=== PATIENT | female | born 1975 | race Caucasian/White ===

== ENCOUNTER 2024-04-29 23:22 | Emergency (ER) | payer BC, OTHER ==
[~2024-04-29] VITALS: Ht 170.2 cm; Wt 90.7 kg
[2024-04-29 23:44] VITALS: BP_SYST 121; PULSE 117; RESP 20; TEMP 99.1; O2SAT 97
[2024-04-30 00:25] LABS: BASOPHILS % (AUTO) 0.2 % (0.0-2.0); EOSINOPHILS % (AUTO) 0.3 % (0.0-4.0); HEMATOCRIT 30.8 % (36-48); HEMOGLOBIN 10.2 g/dL (12.0-16.0); LYMPHOCYTES # (AUTO) 0.4 K/uL (1.0-5.5); LYMPHOCYTES % (AUTO) 3.9 % (20.5-51.5); MEAN CORPUSCULAR HEMOGLOBIN 25 pg (27-31); MEAN CORPUSCULAR HGB CONC 33 % (32-36); MEAN CORPUSCULAR VOLUME 74 fL (79.0-98.0); MONOCYTES # (AUTO) 0.4 K/uL (0.0-1.0); MONOCYTES % (AUTO) 4.1 % (1.7-9.3); NEUTROPHILS % (AUTO) 91.5 % (40.0-70.0); PLATELET COUNT (AUTO) 310 K/uL (130-430); RED BLOOD CELL COUNT(AUTO) 4.14 MIL/uL (4.2-6.2); RED CELL DISTRIBUTION WIDTH 18.3 % (9.0-15.0); WHITE BLOOD COUNT (AUTO) 9.8 K/uL (4.8-10.8)
[2024-04-30 00:29] LABS: BILIRUBIN,URINE NEGATIVE (NEGATIVE); BLOOD, URINE 3+ (NEGATIVE); COLOR,URINE YELLOW (YELLOW); GLUCOSE,URINE NEGATIVE (NEGATIVE); KETONES,URINE 1+ (NEGATIVE); LEUKOCYTE ESTERASE ,URINE 1+ (NEGATIVE); NITRITE, URINE NEGATIVE (NEGATIVE); PROTEIN URINE 2+ (NEGATIVE); UROBILINOGEN,URINE 0.2 (0.2-1.0)
[2024-04-30] MEDS: NACL 0.9% 1,000 ML IV ONE (00:29)
[2024-04-30] MEDS: KETOROLAC TROMETHAMINE 30 MG VIAL IVP ONE (00:29)
[2024-04-30 00:48] LABS: ALBUMIN 3.1 g/dL (3.4-4.8); BILIRUBIN,DIRECT 0.2 mg/dL (0.0-0.3); CALCIUM 8.7 mg/dL (8.4-11.0); CREATININE 1.14 mg/dL (0.55-1.30); POTASSIUM 3.6 mmol/L (3.5-5.1); TOTAL BILIRUBIN 0.6 mg/dL (0.0-1.0); TOTAL PROTEIN, SERUM 7.2 g/dL (6.4-8.3)
[2024-04-30 01:02] LABS: CLARITY/URINE CLOUDY (CLEAR)
[2024-04-30 01:03] LABS: BACTERIA,URINE MODERATE /HPF (None Seen); WBC,URINE >100 /HPF (0-3)
[2024-04-30] MEDS ORDERED: CIPR500T5 PO (01:23)
[2024-04-30] MEDS ORDERED: NAPR-690 PO (01:25)
[2024-04-30] MEDS: cefTRIAXone 1 GM IVPB PREMIX 50 ML IV ONE (01:34)
[2024-04-30 02:05] VITALS: BP_SYST 118; PULSE 97; RESP 18; O2SAT 98
== END 2024-04-30 02:05 | disposition home or self-care (01) ==
LOC: SED 23:22
DX: N39.0 Urinary tract infection, site not specified (principal); R10.30 Lower abdominal pain, unspecified; R11.2 Nausea with vomiting, unspecified; R50.9 Fever, unspecified; Z98.890 Other specified postprocedural states; Z79.899 Other long term (current) drug therapy
CPT/HCPCS: 99284; 80076; 80048; 81001; 85025; 87040; 87086; 87186; 36415; 96365; 96361; 96375; J0696; J1885; J7030; 81000; 81015

== ENCOUNTER 2024-04-30 10:51 | Inpatient (IN) | payer OTHER ==
[~2024-04-30] VITALS: Ht 170.2 cm; Wt 90.7 kg
[~2024-04-30 10:51] MED LIST: CIPR500T5 PO; NAPR-690 PO
[2024-04-30 11:25] VITALS: BP_SYST 116; PULSE 120; RESP 16; TEMP 97.8; O2SAT 95
[2024-04-30] MEDS: NS 1000 ML IV.SOLN IV ONE (11:44)
[2024-04-30] MEDS: ONDANSETRON HCL 4 MG/2 ML VIAL IVP ONE (11:54)
[2024-04-30 12:00] LABS: BASOPHILS % (AUTO) 0.3 % (0.0-2.0); EOSINOPHILS % (AUTO) 0.2 % (0.0-4.0); HEMATOCRIT 28.1 % (36-48); LYMPHOCYTES # (AUTO) 0.5 K/uL (1.0-5.5); LYMPHOCYTES % (AUTO) 3.6 % (20.5-51.5); MEAN CORPUSCULAR HEMOGLOBIN 24 pg (27-31); MEAN CORPUSCULAR HGB CONC 32 % (32-36); MEAN CORPUSCULAR VOLUME 75 fL (79.0-98.0); MONOCYTES # (AUTO) 1.2 K/uL (0.0-1.0); MONOCYTES % (AUTO) 9.5 % (1.7-9.3); NEUTROPHILS # (AUTO) 11.1 K/uL (1.8-7.7); NEUTROPHILS % (AUTO) 86.4 % (40.0-70.0); PLATELET COUNT (AUTO) 297 K/uL (130-430); RED BLOOD CELL COUNT(AUTO) 3.76 MIL/uL (4.2-6.2); RED CELL DISTRIBUTION WIDTH 18.3 % (9.0-15.0); WHITE BLOOD COUNT (AUTO) 12.9 K/uL (4.8-10.8)
[2024-04-30 12:10] LABS: ALBUMIN 2.8 g/dL (3.4-4.8); CALCIUM 8.2 mg/dL (8.4-11.0); CREATININE 1.11 mg/dL (0.55-1.30); POTASSIUM 3.6 mmol/L (3.5-5.1); TOTAL BILIRUBIN 0.5 mg/dL (0.0-1.0); TOTAL PROTEIN, SERUM 6.6 g/dL (6.4-8.3)
[2024-04-30 12:20] LABS: BILIRUBIN,DIRECT 0.2 mg/dL (0.0-0.3)
[2024-04-30] MEDS: cefTRIAXone 1 GM IVPB PREMIX 50 ML IV ONE (12:30)
[2024-04-30] MEDS: ACETAMINOPHEN 500 MG TABLET PO ONE (12:31)
[2024-04-30 13:09] LABS: ANISOCYTOSIS 1+; HYPOCHROMASIA SLIGHT; OVALOCYTES FEW; TEAR DROP CELLS RARE
[2024-04-30] MEDS ORDERED: ALBUTEROL SULFATE 0.083% 2.5 MG/3 ML VIAL.NEB INH PRN (14:15)
[2024-04-30] MEDS ORDERED: MORPHINE 2 MG/ML INJ. SYRINGE IVP PRN (14:15)
[2024-04-30 14:22] VITALS: BP_SYST 106; PULSE 102; O2SAT 95
[2024-04-30 15:00] LABS: BILIRUBIN,URINE NEGATIVE (NEGATIVE); BLOOD, URINE 3+ (NEGATIVE); CLARITY/URINE CLEAR (CLEAR); COLOR,URINE YELLOW (YELLOW); GLUCOSE,URINE NEGATIVE (NEGATIVE); KETONES,URINE 1+ (NEGATIVE); LEUKOCYTE ESTERASE ,URINE TRACE (NEGATIVE); NITRITE, URINE NEGATIVE (NEGATIVE); PH,URINE 5.5 (5.0-8.0); PROTEIN URINE 2+ (NEGATIVE); UROBILINOGEN,URINE 0.2 (0.2-1.0)
[2024-04-30 15:08] LABS: BACTERIA,URINE FEW /HPF (None Seen); MUCUS,URINE None Seen /LPF (None Seen); RBC,URINE 20-50 /HPF (0-3)
[2024-04-30 15:40] VITALS: BP_SYST 112; PULSE 99; RESP 18; TEMP 99.5; O2SAT 99
[2024-04-30 16:00] VITALS: BP_SYST 113; PULSE 97; RESP 18; TEMP 99.3; O2SAT 99
[2024-04-30] MEDS: ACETAMINOPHEN 325 MG TABLET PO PRN (16:34)
[2024-04-30] MEDS: ONDANSETRON HCL 4 MG/2 ML VIAL IVP PRN (16:35)
[2024-04-30] MEDS: NACL 0.9% 1,000 ML IV ONE (16:35)
[2024-04-30 20:00] VITALS: BP_SYST 119; PULSE 77; RESP 18; TEMP 98.9; O2SAT 96
[2024-04-30 22:00] VITALS: TEMP 99.8
[2024-05-01] VITALS (8 sets, daily range): BP systolic 105–125; PULSE 82–103; RESP 15–20; TEMP 97.6–98.4; O2SAT 93–96
[2024-05-01] MEDS: HYDROcodone/ACETAMIN 5-325 MG TAB (NORCO/ VICODIN) PO PRN (00:33)
[2024-05-01 07:53] LABS: ALBUMIN 2.2 g/dL (3.4-4.8); CALCIUM 7.7 mg/dL (8.4-11.0); CREATININE 0.99 mg/dL (0.55-1.30); POTASSIUM 3.7 mmol/L (3.5-5.1); TOTAL BILIRUBIN 0.4 mg/dL (0.0-1.0); TOTAL PROTEIN, SERUM 5.8 g/dL (6.4-8.3)
[2024-05-01 08:51] LABS: BASOPHILS % (AUTO) 0.1 % (0.0-2.0); EOSINOPHILS % (AUTO) 0.2 % (0.0-4.0); HEMOGLOBIN 8.2 g/dL (12.0-16.0); LYMPHOCYTES % (AUTO) 9.6 % (20.5-51.5); MEAN CORPUSCULAR HEMOGLOBIN 25 pg (27-31); MEAN CORPUSCULAR HGB CONC 34 % (32-36); MEAN CORPUSCULAR VOLUME 74 fL (79.0-98.0); MONOCYTES # (AUTO) 1.2 K/uL (0.0-1.0); NEUTROPHILS # (AUTO) 8.3 K/uL (1.8-7.7); NEUTROPHILS % (AUTO) 79.1 % (40.0-70.0); PLATELET COUNT (AUTO) 215 K/uL (130-430); RED BLOOD CELL COUNT(AUTO) 3.24 MIL/uL (4.2-6.2); RED CELL DISTRIBUTION WIDTH 18.6 % (9.0-15.0)
[2024-05-01] MEDS: HYDROcodone/ACETAMIN 10-325 MG TAB PO PRN (08:56)
[2024-05-01 09:02] LABS: WHITE BLOOD COUNT (AUTO) 10.5 K/uL (4.8-10.8)
[2024-05-01] MEDS: NACL 0.9% 1,000 ML IV ONE (13:41)
[2024-05-01] MEDS: cefTRIAXone 1 GM in D5W 50 ML IV SCH (14:16)
[2024-05-01 16:24] LABS: COVID19 ANTIGEN SOFIA FIA NEGATIVE (NEGATIVE)
[2024-05-01 16:26] LABS: INFLUENZA TYPE A Negative (NEGATIVE); INFLUENZA TYPE B NEGATIVE (NEGATIVE)
[2024-05-01] MEDS: DIPHENHYDRAMINE HCL 25 MG CAPSULE PO ONE (16:32)
[2024-05-01 19:22] LABS: TOTAL IRON BIND. CAPACITY 278 ug/dL (250-450)
[2024-05-02] VITALS: BP_SYST 104; PULSE 86; RESP 16; TEMP 98; O2SAT 91
[2024-05-02 07:10] LABS: ALBUMIN 2.1 g/dL (3.4-4.8); CALCIUM 8.1 mg/dL (8.4-11.0); CREATININE 0.97 mg/dL (0.55-1.30); POTASSIUM 3.9 mmol/L (3.5-5.1); TOTAL BILIRUBIN 0.3 mg/dL (0.0-1.0); TOTAL PROTEIN, SERUM 5.9 g/dL (6.4-8.3)
[2024-05-02 07:26] LABS: BASOPHILS % (AUTO) 0.3 % (0.0-2.0); EOSINOPHILS # (AUTO) 0.1 K/uL (0.0-0.4); EOSINOPHILS % (AUTO) 0.5 % (0.0-4.0); HEMATOCRIT 24.9 % (36-48); HEMOGLOBIN 8.5 g/dL (12.0-16.0); LYMPHOCYTES # (AUTO) 1.5 K/uL (1.0-5.5); MEAN CORPUSCULAR HEMOGLOBIN 25 pg (27-31); MEAN CORPUSCULAR HGB CONC 34 % (32-36); MEAN CORPUSCULAR VOLUME 74 fL (79.0-98.0); MONOCYTES # (AUTO) 0.7 K/uL (0.0-1.0); MONOCYTES % (AUTO) 6.8 % (1.7-9.3); NEUTROPHILS # (AUTO) 7.7 K/uL (1.8-7.7); NEUTROPHILS % (AUTO) 77.4 % (40.0-70.0); PLATELET COUNT (AUTO) 260 K/uL (130-430); RED BLOOD CELL COUNT(AUTO) 3.35 MIL/uL (4.2-6.2); RED CELL DISTRIBUTION WIDTH 18.7 % (9.0-15.0)
[2024-05-02 08:00] VITALS: BP_SYST 114; BP_SYST 126; PULSE 79; PULSE 85; RESP 17; RESP 18; TEMP 97.9; TEMP 98.1; O2SAT 91; O2SAT 97; O2SAT 98
[2024-05-02] MEDS: cefTRIAXone 1 GM in D5W 50 ML IV SCH (08:16)
[2024-05-02] MEDS: DIPHENHYDRAMINE HCL 25 MG CAPSULE PO SCH (09:26)
[2024-05-02] MEDS: SOD FERRIC GLUC COMPLEX/SUC 125 MG in NS 100 ML IV ONE ×2 (09:51→18:00)
[2024-05-02 12:01] VITALS: BP_SYST 112; PULSE 72; RESP 18; TEMP 97.5; O2SAT 79
[2024-05-02 16:02] VITALS: BP_SYST 109; PULSE 74; RESP 19; TEMP 97.6; O2SAT 75
[2024-05-02 19:30] VITALS: BP_SYST 127; PULSE 86; RESP 20; TEMP 97.4; O2SAT 93
[2024-05-02 20:15] VITALS: O2SAT 95
[2024-05-03 03:27] VITALS: RESP 18; TEMP 97.4; O2SAT 94
[2024-05-03 05:02] LABS: BASOPHILS % (AUTO) 0.5 % (0.0-2.0); EOSINOPHILS # (AUTO) 0.1 K/uL (0.0-0.4); EOSINOPHILS % (AUTO) 1.2 % (0.0-4.0); HEMOGLOBIN 8.4 g/dL (12.0-16.0); LYMPHOCYTES # (AUTO) 1.3 K/uL (1.0-5.5); LYMPHOCYTES % (AUTO) 17.3 % (20.5-51.5); MEAN CORPUSCULAR HEMOGLOBIN 24 pg (27-31); MEAN CORPUSCULAR HGB CONC 32 % (32-36); MEAN CORPUSCULAR VOLUME 75 fL (79.0-98.0); MONOCYTES # (AUTO) 0.5 K/uL (0.0-1.0); MONOCYTES % (AUTO) 6.7 % (1.7-9.3); NEUTROPHILS # (AUTO) 5.6 K/uL (1.8-7.7); NEUTROPHILS % (AUTO) 74.3 % (40.0-70.0); PLATELET COUNT (AUTO) 321 K/uL (130-430); RED BLOOD CELL COUNT(AUTO) 3.47 MIL/uL (4.2-6.2); RED CELL DISTRIBUTION WIDTH 18.4 % (9.0-15.0); WHITE BLOOD COUNT (AUTO) 7.5 K/uL (4.8-10.8)
[2024-05-03 05:23] LABS: ALBUMIN 2.1 g/dL (3.4-4.8); CALCIUM 8.2 mg/dL (8.4-11.0); CREATININE 0.86 mg/dL (0.55-1.30); POTASSIUM 3.3 mmol/L (3.5-5.1); TOTAL BILIRUBIN 0.2 mg/dL (0.0-1.0); TOTAL PROTEIN, SERUM 6.1 g/dL (6.4-8.3)
[2024-05-03 08:00] VITALS: BP_SYST 133; PULSE 80; RESP 16; TEMP 97.8; O2SAT 97
[2024-05-03 08:43] VITALS: BP_SYST 127; PULSE 86; O2SAT 94
[2024-05-03] MEDS: SOD FERRIC GLUC COMPLEX/SUC 125 MG in NS 100 ML IV SCH (11:17)
[2024-05-03 11:36] VITALS: BP_SYST 117; PULSE 77; RESP 17; TEMP 97; O2SAT 99
[2024-05-03] MEDS ORDERED: FERR250T2 PO (11:41)
[2024-05-03] MEDS: POTASSIUM CHLORIDE 20 MEQ TABLET.ER PO ONE (13:37)
[2024-05-03 15:04] VITALS: BP_SYST 116; PULSE 90; RESP 16; TEMP 97.5; O2SAT 97
== END 2024-05-03 16:16 | disposition home health service (06) | DRG 872 ==
LOC: SED 10:51 → SMU 14:05
PROVIDERS: ADMIT Family Medicine; ATTEND Family Medicine
DX: A41.9 Sepsis, unspecified organism (principal); N12 Tubulo-interstitial nephritis, not specified as acute or chronic; D50.9 Iron deficiency anemia, unspecified; E83.51 Hypocalcemia; Z20.822 Contact with and (suspected) exposure to COVID-19; K76.0 Fatty (change of) liver, not elsewhere classified; Z79.899 Other long term (current) drug therapy
CPT/HCPCS: 36415; 80048; 80053; 80076; 81000; 81001; 81015; 83540; 83550; 83605; 85025; 87040; 87086; 94070; 94760; 96365; 96375; 99285; J0696; J2405; J2916; J7060; Q0163